=== PATIENT | male | born 1945 | race Hispanic/Latino ===

== ENCOUNTER → 2023-03-18 | Day surgery (SDC) | payer MEDICARE ==
[2023-03-15 15:19] LABS: BASOPHILS # (AUTO) 0.1 (0.0-0.1); BASOPHILS % 1.4 % (0.0-1.0); EOSINOPHILS # (AUTO) 0.5 (0.0-0.4); EOSINOPHILS % 5.9 % (0.0-6.0); HEMATOCRIT 36.7 % (38.2-49.6); HEMOGLOBIN 12.4 g/dL (14.0-18.0); LYMPHOCYTES # (AUTO) 1.6 (1.0-3.2); LYMPHOCYTES % 20.4 % (18.0-39.1); MEAN CORPUSCULAR HEMOGLOBIN 31.1 pg (28-32); MEAN CORPUSCULAR HGB CONC 33.8 g/dL (31-35); MONOCYTES # (AUTO) 0.8 (0.2-0.8); NEUTROPHILS # (AUTO) 4.8 (2.1-6.9); NEUTROPHILS % 61.9 % (38.7-80.0); PLATELET COUNT 316 x10e3/uL (140-360); RED BLOOD COUNT 3.99 x10e6/uL (4.3-5.7); RED CELL DISTRIBUTION WIDTH 13.3 % (11.7-14.4); WHITE BLOOD COUNT 7.69 x10e3/uL (4.8-10.8)
[~2023-03-18] MED LIST: ALBUTEROL 90 MCG/ACT INHALER INH ONE; ALENDRONATE SOD70 MG; ASPIRIN81 MG PO; AVODART0.5 MG PO; BENZONATATE100 MG PO; CALCIUM ACETAT667 MG PO; CRESTOR10 MG PO; FENTANYL CITRATE/PF 100MCG/2 ML INJ ONE; LACTATED RINGER'S 1,000 ML ONE; OMEPRAZOLE40 MG PO; PROVENTIL HFA6.7 GM INH; VITAMIN D
[2023-03-18 09:13] VITALS: TEMP 97.1
[2023-03-18 09:35] VITALS: BP 125/64; PULSE 70; RESP 18; O2SAT 100
== END | disposition home or self-care (01) ==
LOC: OR 06:48
PROVIDERS: ATTEND Internal Medicine Gastroenterology
DX: K29.50 Unspecified chronic gastritis without bleeding (principal); K21.9 Gastro-esophageal reflux disease without esophagitis; K44.9 Diaphragmatic hernia without obstruction or gangrene; R63.4 Abnormal weight loss; E78.5 Hyperlipidemia, unspecified; F17.200 Nicotine dependence, unspecified, uncomplicated; M81.0 Age-related osteoporosis without current pathological fracture; I49.1 Atrial premature depolarization; Z01.810 Encounter for preprocedural cardiovascular examination; Z01.812 Encounter for preprocedural laboratory examination; Z79.899 Other long term (current) drug therapy; Z79.82 Long term (current) use of aspirin
CPT/HCPCS: 36415; 43239; 85025; 88305; 88342; 93005; J3010; J7121